=== PATIENT | female | born 1975 | race Caucasian/White ===

== ENCOUNTER 2017-03-11 11:48 | Emergency (ER) | payer OTHER ==
[2017-03-11 11:48] VITALS: BMI 26.9
[2017-03-11 11:51] VITALS: BP 139/87; PULSE 61; RESP 16; TEMP 98.9; O2SAT 100
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
== END 2017-03-11 14:22 | disposition home or self-care (01) ==
LOC: H.ER 11:48
DX: S40.012A Contusion of left shoulder, initial encounter (principal); V03.10XA Pedestrian on foot injured in collision with car, pick-up truck or van in traffic accident, initial encounter; Y92.410 Unspecified street and highway as the place of occurrence of the external cause